=== PATIENT | male | born 1950 | race Caucasian/White ===

== ENCOUNTER 2016-12-02 04:17 | Observation (INO) | payer MEDICARE, OTHER ==
[~2016-12-02] VITALS: Ht 172.7 cm; Wt 84.5 kg
[2016-12-02] VITALS (11 sets, daily range): BP systolic 100–140; BP diastolic 54–83; PULSE 53–74; RESP 16–24; TEMP 95.8–97.5; O2SAT 97–100
[~2016-12-02 04:17] MED LIST: AMBI10TA PO; BUSP10 PO; FLUO-1 PO; PROT40TA PO
[2016-12-02] MEDS ORDERED: SODIUM CHLOR 0.9% 1000 ML INJ 1,000 ML IV SCH ×3 (04:48→07:30)
[2016-12-02] MEDS ORDERED: AMBI10TA PO (04:53)
[2016-12-02] MEDS ORDERED: FLUO-1 PO (04:53)
[2016-12-02] MEDS ORDERED: BUSP10TA PO (04:53)
[2016-12-02] MEDS ORDERED: NEUR300C PO (04:53)
[2016-12-02] MEDS ORDERED: OMEP20TA PO (04:53)
--- NOTE | 2016-12-02 04:54 | PD ---
HPI Chief Complaint: GI Complaint Time Seen by Provider: 04:48 Travel History International Travel<30 days: No Contact w/Intl Traveler<30days: No Traveled to known affect area: No History of Present Illness HPI 66-year-old male presents to the emergency department by private transportation for evaluation of abdominal pain. According the patient he has had abdominal pain since bedtime. Patient's had nausea without hematemesis coffee-ground emesis melena hematochezia. No reported fever chills chest pain or shortness of breath. Patient takes medication for anxiety posttraumatic stress disorder and insomnia. Patient also takes medication for GI upset. Patient states he's had similar symptoms several years ago. Patient denies previous abdominal surgery. Patient does not report alleviating or exacerbating factors. Pain affects the entire abdomen as 10 over 10 in intensity. PFSH Past Medical History Narrative Medical Anxiety depression cholelithiasis; denies surgery; nursing notes reviewed Anxiety: Yes Depression: Yes Cancer: No Cardiovascular Problems: No Diminished Hearing: No Endocrine: No Genitourinary: No Immune Disorder: No Musculoskeletal: No Neurologic: Yes Psychiatric: Yes Reproductive: No Respiratory: No Immunizations Current: Yes Seizures: Yes Past Surgical History AICD: No Arteriovenous Shunt: No Insulin Pump: No Joint Replacement: No Pacemaker: No Social History Alcohol Use: No Tobacco Use: No Substance Use: No Allergies-Medications (Allergen,Severity, Reaction): Coded Allergies: No Known Allergies (Unverified , 12/02/16) Reported Meds & Prescriptions Reported Meds & Active Scripts Active Reported Buspirone (Buspirone HCl) 10 Mg Tab 10 Mg PO DAILY Neurontin (Gabapentin) 300 Mg Cap 300 Mg PO TID Ambien (Zolpidem Tartrate) 10 Mg Tab 10 Mg PO HS PRN Prozac (Fluoxetine HCl) 10 Mg Cap 10 Mg PO DAILY Omeprazole 20 Mg Tab 20 Mg PO DAILY Review of Systems Except as stated in HPI: all other systems reviewed are Neg General / Constitutional: No: Fever HENT: No: Congestion Cardiovascular: No: Chest Pain or Discomfort Respiratory: No: Shortness of Breath Gastrointestinal: Positive: Nausea, Vomiting, Abdominal Pain, No: Diarrhea Genitourinary: No: Dysuria, Flank Pain Musculoskeletal: No: Myalgias, Arthralgias Skin: No Rash Neurologic: No: Weakness Psychiatric: No: Anxiety Endocrine: No: Heat Intolerance Hematologic/Lymphatic: No: Easy Bruising Physical Exam Narrative GENERAL: Well-developed well-nourished male in obvious discomfort no respiratory distress SKIN: Warm and dry. HEAD: Normocephalic. EYES: No scleral icterus. No injection or drainage. NECK: Supple, trachea midline. No JVD or lymphadenopathy. CARDIOVASCULAR: Regular rate and rhythm without murmurs, gallops, or rubs. RESPIRATORY: Breath sounds equal bilaterally. No accessory muscle use. GASTROINTESTINAL: Abdomen soft, diffusely tender without guarding or rebound or clinical Jung sign, no palpable pulsatile mass, nondistended. MUSCULOSKELETAL: No cyanosis, or edema. BACK: Nontender without obvious deformity. No CVA tenderness. Data Data Last Documented VS Vital Signs Date Time Temp Pulse Resp B/P Pulse Ox O2 Delivery O2 Flow Rate FiO2 12/02/16 06:50 16 12/02/16 06:48 56 126/73 97 Room Air 12/02/16 04:30 97.5 Orders Complete Blood Count With Diff (12/02/16 04:48) Comprehensive Metabolic Panel (12/02/16 04:48) Lipase (12/02/16 04:48) Lactic Acid (12/02/16 04:48) Urinalysis - C+S If Indicated (12/02/16 04:48) Iv Access Insert/Monitor (12/02/16 04:48) Ecg Monitoring (12/02/16 04:48) Oximetry (12/02/16 04:48) Ondansetron Inj (Zofran Inj) (12/02/16 05:00) Sodium Chlor 0.9% 1000 Ml Inj (Ns 1000 M (12/02/16 04:48) Sodium Chloride 0.9% Flush (Ns Flush) (12/02/16 05:00) Electrocardiogram (12/02/16 04:48) Hydromorphone Pf Inj (Dilaudid Pf Inj) (12/02/16 05:00) Ct Abd/Pel W Iv Contrast(Rout) (12/02/16 ) Troponin I (12/02/16 04:48) Sodium Chlorid 0.9% 500 Ml Inj (Ns 500 M (12/02/16 05:30) Aspirin Chew (Aspirin Chew) (12/02/16 09:00) Nitroglycerin Sl (Nitrostat Sl) (12/02/16 05:30) Aspirin Chew (Aspirin Chew) (12/02/16 06:30) Sodium Chlor 0.9% 1000 Ml Inj (Ns 1000 M (12/02/16 06:30) Ketorolac Inj (Toradol Inj) (12/02/16 06:30) Pantoprazole Inj (Protonix Inj) (12/02/16 06:30) Hydromorphone Pf Inj (Dilaudid Pf Inj) (12/02/16 06:30) Aspirin Chew (Aspirin Chew) (12/02/16 09:00) Troponin I (12/02/16 06:37) Place In Observation (12/02/16 ) Vital Signs (Adult) Q4H (12/02/16 06:55) Activity Oob With Assistance (12/02/16 06:55) Death Claim Clerk / Telemetry .CONTINUOUS (12/02/16 06:55) Diet Npo (12/02/16 Breakfast) Sodium Chlor 0.9% 1000 Ml Inj (Ns 1000 M (12/02/16 06:55) Sodium Chloride 0.9% Flush (Ns Flush) (12/02/16 07:00) Sodium Chloride 0.9% Flush (Ns Flush) (12/02/16 09:00) Comprehensive Metabolic Panel (12/03/16 06:00) Complete Blood Count With Diff (12/03/16 06:00) Naloxone Inj (Narcan Inj) (12/02/16 07:00) Hydromorphone Pf Inj (Dilaudid Pf Inj) (12/02/16 07:00) Us Abdomen Complete (12/02/16 ) Admit Order (Ed Use Only) (12/02/16 ) ^ Saline Lock (12/02/16 06:56) Resp Oxygen Elkin C Titrat 1-4 L (12/02/16 ) Notify Dr: Other (12/02/16 06:56) Sodium Chloride 0.9% Flush (Ns Flush) (12/02/16 09:00) Sodium Chloride 0.9% Flush (Ns Flush) (12/02/16 07:00) Labs Laboratory Tests Test 12/02/16 12/02/16 12/02/16 04:45 06:15 06:40 White Blood Count 7.6 TH/MM3 Red Blood Count 5.64 MIL/MM3 Hemoglobin 14.6 GM/DL Hematocrit 46.4 % Mean Corpuscular Volume 82.2 FL Mean Corpuscular Hemoglobin 25.8 PG Mean Corpuscular Hemoglobin 31.4 % Concent Red Cell Distribution Width 13.4 % Platelet Count 236 TH/MM3 Mean Platelet Volume 8.4 FL Neutrophils (%) (Auto) 76.4 % Lymphocytes (%) (Auto) 15.7 % Monocytes (%) (Auto) 6.8 % Eosinophils (%) (Auto) 0.7 % Basophils (%) (Auto) 0.4 % Neutrophils # (Auto) 5.8 TH/MM3 Lymphocytes # (Auto) 1.2 TH/MM3 Monocytes # (Auto) 0.5 TH/MM3 Eosinophils # (Auto) 0.1 TH/MM3 Basophils # (Auto) 0.0 TH/MM3 CBC Comment DIFF FINAL Differential Comment Sodium Level 143 MEQ/L Potassium Level 3.7 MEQ/L Chloride Level 108 MEQ/L Carbon Dioxide Level 29.5 MEQ/L Anion Gap 6 MEQ/L Blood Urea Nitrogen 21 MG/DL Creatinine 0.98 MG/DL Estimat Glomerular Filtration 77 ML/MIN Rate Random Glucose 134 MG/DL Lactic Acid Level 2.3 mmol/L Calcium Level 8.6 MG/DL Total Bilirubin 0.6 MG/DL Aspartate Amino Transf 21 U/L (AST/SGOT) Alanine Aminotransferase 35 U/L (ALT/SGPT) Alkaline Phosphatase 66 U/L Troponin I LESS THAN 0.02 LESS THAN 0.02 NG/ML NG/ML Total Protein 7.3 GM/DL Albumin 3.8 GM/DL Lipase 204 U/L Urine Color YELLOW Urine Turbidity CLEAR Urine pH 5.0 Urine Specific [place] GREATER THAN 1.035 Urine Protein NEG mg/dL Urine Glucose (UA) NEG mg/dL Urine Ketones NEG mg/dL Urine Occult Blood NEG Urine Nitrite NEG Urine Bilirubin NEG Urine Leukocyte Esterase NEG Urine RBC 0-2 /hpf Urine WBC 0-2 /hpf Urine Squamous Epithelial 0-5 /hpf Cells Urine Calcium Oxalate Crystals MOD /hpf Urine Bacteria NONE /hpf Microscopic Urinalysis Comment CULT NOT INDICATED MDM Medical Decision Making Medical Screen Exam Complete: Yes Emergency Medical Condition: Yes Medical Record Reviewed: Yes Interpretation(s) ekg: Normal sinus rhythm rate 67 J-point elevation anterolaterally without any reciprocal ST segment depression; possible early repolarization EKG@6:19 AM for complaint of increased abdominal pain no acute ST elevation or injury pattern change sinus bradycardia rate 54; CT abdomen and pelvis reveals no acute abnormalities except for single calcified large gallstone without inflammatory changes Vital Signs Date Time Temp Pulse Resp B/P Pulse Ox O2 Delivery O2 Flow Rate FiO2 12/02/16 06:22 74 16 100/54 99 Room Air 12/02/16 06:00 59 16 122/63 99 Room Air 12/02/16 05:37 58 16 122/73 99 Room Air 12/02/16 05:32 57 131/83 99 Room Air 12/02/16 05:30 59 16 140/80 99 12/02/16 04:51 18 99 Room Air 12/02/16 04:30 97.5 67 18 126/78 99 CBC & BMP Diagram 12/02/16 04:45 Last Impressions Abdomen/Pelvis CT 12/02/16 0000 Signed Impressions: Service Date/Time: Monday, December 02, 2016 05:34 - CONCLUSION: Normal examination except for a single peripherally calcified gallstone. Silver Smith MD Troponin I less than 0.02, not elevated CK 60, not elevated Lactic acid 2.3 elevated Differential Diagnosis Abdominal pain, gastritis, peptic ulcer disease, cholecystitis, choledocholithiasis, pancreatitis, ischemic colitis, appendicitis, diverticulitis, viscus perforation, atypical chest pain, ACS, abdominal aortic dissection/aneurysm Narrative Course IV access obtained specimens collected and sent for resulting patient administered normal saline along with Dilaudid 1 mg IV and Zofran [address] abdomen and pelvis ordered At 5:20 AM patient's abdominal pain has diminished and continues to deny any chest pain or shortness of breath. Patient's abdominal pain is diffuse other primarily reproducible right upper quadrant and epigastric periumbilical region without guarding or rebound or palpable pulsatile mass. @6:15 AM patient is awakened by me from sleeping and then complaining of severe nonradiating abdominal pain 10 over 10 pain without nausea no vomiting sweats or chest pain shortness of breath referred neck jaw back shoulder arm or chest pain. Patient states pain is periumbilical and epigastric. On palpation of the entire abdomen tenderness is the same; no clinical Jung sign. There is no guarding or rebound. Due to complaint of increasing abdominal pain repeat EKG performed reveals sinus bradycardia no acute ST elevation or injury pattern change some J-point noted in V3 through V5 no reciprocal ST segment depression or T-wave inversion. Patient given additional IV fluids Protonix and a one- time dose of Toradol. Patient states earlier administration of nitroglycerin provided no symptom relief and again states he has no chest pain. Patient does report that symptoms began after eating a double cheeseburger. CT abdomen and pelvis does identify a single large calcified gallstone without evidence of ductal dilatation or gallbladder wall thickening or pericholecystic fluid. Patient is identified to have elevated lactic acid of 2.3. Patient's case discussed with on-call [facility] MD --will admit to OBS for further evaluation, npo, and bowel rest Physician Communication Physician Communication call placed to [facility] service --discussed with Dr Nelson for OBS Diagnosis Primary Impression: Intractable upper abdominal pain Additional Impression: Cholelithiasis without obstruction Qualified Code: K80.20 - Calculus of gallbladder without cholecystitis without obstruction Admitting Information Admitting Physician Requests: Observation Sandra Villarreal MD December 02, 2016 04:54
[2016-12-02] MEDS ORDERED: HYDROmorphone HCL PF 1 MG/ML VIAL IV PUSH ONE ×2 (05:00→06:30)
[2016-12-02] MEDS ORDERED: SODIUM CHLORIDE 0.9% FLUSH 10 ML FLUSH IV FLUSH PRN ×2 (05:00→07:00)
[2016-12-02] MEDS ORDERED: ONDANSETRON HCL 4 MG/2 ML VIAL IVP ONE (05:00)
[2016-12-02 05:11] LABS: AUTOMATED NEUTROPHIL # 5.8 TH/MM3 (1.8-7.7); BASOPHIL % 0.4 % (0.0-2.0); EOSINOPHIL # 0.1 TH/MM3 (0-0.4); EOSINOPHIL % 0.7 % (0.0-4.0); HEMATOCRIT 46.4 % (39.0-51.0); HEMO FLAGS DIFF FINAL; LYMPH % 15.7 % (9.0-44.0); LYMPHOCYTE # 1.2 TH/MM3 (1.0-4.8); MEAN CELL VOLUME 82.2 FL (80.0-100.0); MEAN CORPUSCULAR HEMOGLOBIN 25.8 PG (27.0-34.0); MEAN CORPUSCULAR HGB CONC 31.4 % (32.0-36.0); MONO % 6.8 % (0.0-8.0); NEUT % 76.4 % (16.0-70.0); PLATELET COUNT 236 TH/MM3 (150-450); RED BLOOD COUNT 5.64 MIL/MM3 (4.50-5.90); RED CELL DISTRIBUTION WIDTH 13.4 % (11.6-17.2); WHITE BLOOD COUNT 7.6 TH/MM3 (4.0-11.0)
[2016-12-02 05:21] LABS: CHLORIDE 108 MEQ/L (98-107); POTASSIUM 3.7 MEQ/L (3.5-5.1); SODIUM (NA) 143 MEQ/L (136-145)
[2016-12-02 05:25] LABS: ANION GAP 6 MEQ/L (5-15); BICARBONATE 29.5 MEQ/L (21.0-32.0); BLOOD UREA NITROGEN 21 MG/DL (7-18)
[2016-12-02 05:27] LABS: ALT (GPT) 35 U/L (12-78)
[2016-12-02 05:28] LABS: AST (GOT) 21 U/L (15-37); GLOMERULAR FILTRATION RATE 77 ML/MIN (>89)
[2016-12-02 05:29] LABS: TOTAL BILIRUBIN ADULT 0.6 MG/DL (0.2-1.0)
[2016-12-02 05:30] LABS: ALKALINE PHOSPHATASE 66 U/L (45-117)
[2016-12-02] MEDS ORDERED: NITROGLYCERIN 0.4 MG SL 25 TABS/BTL SL ONE (05:30)
[2016-12-02] MEDS ORDERED: SODIUM CHLORID 0.9% 500 ML INJ 500 ML IV ONE (05:30)
--- NOTE | 2016-12-02 06:15 | RADHPO ---
EXAM DATE/TIME: 12/02/2016 05:34 [facility] COMPARISON: CT ABDOMEN & PELVIS W CONTRAST, April 09, 2016, 3:57. INDICATIONS : Abdominal pain. Nausea. IV CONTRAST: 100 cc Omnipaque 350 (iohexol) IV ORAL CONTRAST: No oral contrast ingested. RADIATION DOSE: 12.12 CTDIvol (mGy) MEDICAL HISTORY : None SURGICAL HISTORY : None. ENCOUNTER: Initial ACUITY: 1 day PAIN SCALE: 10/10 LOCATION: Bilateral upper quadrant TECHNIQUE: Volumetric scanning of the abdomen and pelvis was performed. Using automated exposure control and ad justment of the mA and/or kV according to patient size, radiation dose was kept as low as reasonably achievable to obtain optimal diagnostic quality images. FINDINGS: LOWER LUNGS: The visualized lower lungs are clear. LIVER: Homogeneous density without lesion. There is no dilation of the biliary tree. Solitary peripherally calcified gallstone. SPLEEN: Normal size without lesion. PANCREAS: Within normal limits. KIDNEYS: Normal in size and shape. There is no mass, stone or hydronephrosis. ADRENAL GLANDS: Within normal limits. VASCULAR: There is no aortic aneurysm. BOWEL/MESENTERY: The stomach, small bowel, and colon demonstrate no acute abnormality. There is no free intraperitone al air or fluid. ABDOMINAL WALL: Within normal limits. RETROPERITONEUM: There is no lymphadenopathy. BLADDER: No wall thickening or mass. REPRODUCTIVE: Within normal limits. INGUINAL: There is no lymphadenopathy or hernia. MUSCULOSKELETAL: Within normal limits for patient age. CONCLUSION: Normal examination except for a single peripherally calcified gallstone. Silver Smith MD on December 02, 2016 at 6:12 Board Certified Radiologist. This report was verified electronically.
[2016-12-02 06:26] LABS: BLOOD, URINE NEG (NEG); GLUCOSE,URINE NEG (NEG); KETONE, URINE NEG (NEG); NITRITE,URINE NEG (NEG)
[2016-12-02] MEDS ORDERED: ASPIRIN 81 MG CHEW TAB ONE (06:30)
[2016-12-02] MEDS ORDERED: SODIUM CHLOR 0.9% 1000 ML INJ 1,000 ML IV ONE (06:30)
[2016-12-02] MEDS ORDERED: PANTOPRAZOLE SODIUM 40 MG VIAL IV PUSH ONE (06:30)
[2016-12-02] MEDS ORDERED: KETOROLAC TROMETHAMINE 30 MG/ML (IVP) VIAL IV PUSH ONE (06:30)
[2016-12-02 06:32] LABS: URINE COLOR YELLOW (YELLW/STRAW)
[2016-12-02 06:33] LABS: RBC, URINE 0-2 /hpf (0-3); SQUAMOUS EPITHELIAL CELL URINE 0-5 /hpf (0-5); WBC, URINE 0-2 /hpf (0-5)
[2016-12-02 06:34] LABS: CALCIUM OXALATE CRYSTALS,URINE MOD /hpf; COMMENT (UR) CULT NOT INDICATED; CULTURE IF INDICATED CULT NOT INDICATED
[2016-12-02] MEDS ORDERED: NALOXONE HCL 0.4 MG/ML AMP IV PRN (07:00)
[2016-12-02] MEDS ORDERED: SODIUM CHLORIDE 0.9% FLUSH 10 ML FLUSH IVF PRN (07:00)
[2016-12-02] MEDS ORDERED: HYDROmorphone HCL PF 1 MG/ML VIAL IV PUSH PRN (07:00)
[2016-12-02] MEDS ORDERED: IOHEXOL 350 MG/ML 10 ML VIAL (for RAD DIAG) IV ONE (07:10)
--- NOTE | 2016-12-02 08:16 | RADHPO ---
EXAM DATE/TIME: 12/02/2016 12:43 [facility] COMPARISON: No previous studies available for comparison. INDICATIONS : Abdominal pain, vomiting. MEDICAL HISTORY : Abdominal pain, vomiting. SURGICAL HISTORY : None. ENCOUNTER: Initial ACUITY: 1 day PAIN SCORE: 0/10 LOCATION: Bilateral upper quadrant MEASUREMENTS: LIVER: 14.3 cm length COMMON DUCT: 5 mm RIGHT KIDNEY: 13.3 x 5.9 x 5.0 cm LEFT KIDNEY: 13.5 x 6.8 x 5.9 cm SPLEEN: 8.4 cm length AORTA: 2.1cm maximal FINDINGS: LIVER: Normal echotexture without focal lesion or ductal dilatation. Hepatopedal flow. COMMON DUCT: No intraluminal mass or stone visualized. GALLBLADDER: Contains a non-mobile stone in gallbladder neck, demonstrates no wall thickening or pericholecystic f luid. PANCREAS: Not well seen. RIGHT KIDNEY: No hydronephrosis, stone or mass. LEFT KIDNEY: No hydronephrosis, stone or mass. SPLEEN: No focal lesion. AORTA: Non aneurysmal. IVC: Within normal limits. CONCLUSION: 1. Cholelithiasis without gallbladder wall thickening. 2. Poorly visualized pancreas. Anthony Mei MD on December 02, 2016 at 8:13 Board Certified Radiologist. This report was verified electronically.
[2016-12-02] MEDS ORDERED: SODIUM CHLORIDE 0.9% FLUSH 10 ML FLUSH IV FLUSH SCH ×2 (09:00)
[2016-12-02] MEDS ORDERED: ASPIRIN 81 MG CHEW TAB CHEW SCH ×2 (09:00)
--- NOTE | 2016-12-02 10:10 | HHI.HP ---
[facility] Service [facility] Primary Care Physician [facility] Admission Diagnosis intractable abdominal pain; cholelithiasis Diagnoses: (1) Abdominal pain Diagnosis: Principal Chief Complaint: abdominal pain Travel History International Travel<30 Days: No Contact w/Intl Traveler <30 Da: No Traveled to Known Affected Are: No History of Present Illness patient is a 66 y/o male with history of PTSD who presented to ER with abdominal pain. he says that the pain started yesterday after he had a cheeseburger-the pain was severe and periumbilical. pain was associated with nausea and vomiting. he denies any diarrhea.at the time of my evaluation he said that the pain already got better.he denies any chest pain or sob. Review of Systems Constitutional: DENIES: Fever, Weight loss, Chills, Night Sweats Eyes: DENIES: Blurred vision, Diplopia, Vision loss, Double Vision Ears, nose, mouth, throat: DENIES: Tinnitus, Vertigo, Throat pain, Epistaxis Respiratory: DENIES: Apneas, Cough, Snoring, Wheezing, Hemoptysis, Sputum production, Shortness of breath Cardiovascular: DENIES: Chest pain, Palpitations, Syncope, Dyspnea on Exertion , PND, Lower Extremity Edema, Orthopnea, Claudication Gastrointestinal: COMPLAINS OF: Abdominal pain, Nausea, Vomiting, DENIES: Black stools, Bloody stools, Constipation, Diarrhea, Difficulty Swallowing, Anorexia Genitourinary: DENIES: Urinary frequency, Urgency, Hematuria, Dysuria Musculoskeletal: DENIES: Joint pain, Muscle aches, Stiffness, Joint Swelling Integumentary: DENIES: Rash Neurologic: DENIES: Abnormal gait, Headache, Localized weakness, Paresthesias, Seizures, Speech Problems, Tremor, Poor Balance Psychiatric: DENIES: Anxiety, Confusion, Mood changes, Depression, Hallucinations, Agitation, Suicidal Ideation, Homicidal Ideation, Delusions Past Family Social History Past Medical History PTSD Past Surgical History none reported. Reported Medications Buspirone (Buspirone HCl) 10 Mg Tab 10 Mg PO DAILY Neurontin (Gabapentin) 300 Mg Cap 300 Mg PO TID Ambien (Zolpidem Tartrate) 10 Mg Tab 10 Mg PO HS PRN Prozac (Fluoxetine HCl) 10 Mg Cap 10 Mg PO DAILY Omeprazole 20 Mg Tab 20 Mg PO DAILY Allergies: Coded Allergies: No Known Allergies (Unverified , 12/02/16) Active Ordered Medications Current Medications Ondansetron HCl 4 mg 4 mg ONCE ONCE IVP Last administered on 12/02/16 04:58; Start 12/02/16 at 05:00; Stop 12/02/16 at 05:01; Status DC Sodium Chloride (NS 1000 ml Inj) 1,000 ml @ 125 mls/hr Q8H IV Last administered on 12/02/16 04:58; Start 12/02/16 at 04:48; Stop 12/02/16 at 07:02 ; Status DC Sodium Chloride (NS Flush) 2 ml UNSCH PRN IV FLUSH FLUSH AFTER USING IV ACCESS ; Start 12/02/16 at 05:00; Stop 12/02/16 at 07:00; Status DC Hydromorphone HCl 1 mg 1 mg ONCE ONCE IV PUSH Last administered on 12/02/16 04:59; Start 12/02/16 at 05:00; Stop 12/02/16 at 05:01; Status DC Sodium Chloride (NS 500 ml Inj) 500 ml @ 500 mls/hr BOLUS ONCE IV Last administered on 12/02/16 05:28; Start 12/02/16 at 05:30; Stop 12/02/16 at 06:29 ; Status DC Aspirin (Aspirin Chew) 162 mg DAILY CHEW ; Start 12/02/16 at 09:00; Stop at 09:00; Status DC Nitroglycerin (Nitrostat Sl) 0.4 mg ONCE ONCE SL Last administered on 05:28; Start 12/02/16 at 05:30; Stop 12/02/16 at 05:31; Status DC Aspirin 81 mg 81 mg STK-MED ONCE .ROUTE Last administered on 12/02/16 06:45; Start 12/02/16 at 06:30; Stop 12/02/16 at 06:31; Status DC Sodium Chloride (NS 1000 ml Inj) 1,000 ml @ 999 mls/hr BOLUS ONCE IV Last administered on 12/02/16 06:43; Start 12/02/16 at 06:30; Stop 12/02/16 at 07:30 ; Status DC Ketorolac Tromethamine (Toradol Inj) 30 mg ONCE ONCE IV PUSH Last administered on 12/02/16 06:44; Start 12/02/16 at 06:30; Stop 12/02/16 at 06:31 ; Status DC Pantoprazole Sodium (Protonix Inj) 40 mg ONCE ONCE IV PUSH Last administered on 12/02/16 06:44; Start 12/02/16 at 06:30; Stop 12/02/16 at 06:31; Status DC Hydromorphone HCl (Dilaudid Pf Inj) 0.5 mg ONCE ONCE IV PUSH Last administered on 12/02/16 06:44; Start 12/02/16 at 06:30; Stop 12/02/16 at 06:31 ; Status DC Aspirin 162 mg 162 mg DAILY CHEW ; Start 12/02/16 at 09:00 Sodium Chloride (NS 1000 ml Inj) 1,000 ml @ 100 mls/hr Q10H IV ; Start at 06:55; Status Cancel Sodium Chloride (NS Flush) 2 ml UNSCH PRN IV FLUSH FLUSH AFTER USING IV ACCESS ; Start 12/02/16 at 07:00 Sodium Chloride (NS Flush) 2 ml BID IV FLUSH ; Start 12/02/16 at 09:00 Naloxone HCl (Narcan Inj) 0.4 mg UNSCH PRN IV SEE LABEL COMMENTS; Start at 07:00 Hydromorphone HCl (Dilaudid Pf Inj) 0.2 mg Q4H PRN IV PUSH pain >5; Start 12/02 at 07:00 Sodium Chloride (NS Flush) 2 ml BID IV FLUSH ; Start 12/02/16 at 09:00; Stop at 09:00; Status DC Sodium Chloride (NS Flush) 2 ml UNSCH PRN IVF FLUSH AFTER USING IV ACCESS; Start 12/02/16 at 07:00; Stop 12/02/16 at 07:02; Status DC Iohexol 100 ml 100 ml STK-MED ONCE IV Last administered on 12/02/16 07:10; Start 12/02/16 at 07:10; Stop 12/02/16 at 07:11; Status DC Sodium Chloride (NS 1000 ml Inj) 1,000 ml @ 100 mls/hr Q10H IV Last administered on 12/02/16t 07:36; Start 12/02/16 at 07:30 Family History not relevant to this admission. Social History no smoking or drinking. Physical Exam Vital Signs Vital Signs Date Time Temp Pulse Resp B/P Pulse Ox O2 Delivery O2 Flow Rate FiO2 12/02/16 09:12 64 16 100/60 99 12/02/16 06:50 16 12/02/16 06:48 56 16 126/73 97 Room Air 12/02/16 06:22 74 16 100/54 99 Room Air 12/02/16 06:00 59 16 122/63 99 Room Air 12/02/16 05:37 58 16 122/73 99 Room Air 12/02/16 05:32 57 131/83 99 Room Air 12/02/16 05:30 59 16 140/80 99 12/02/16 04:51 18 99 Room Air 12/02/16 04:30 97.5 67 18 126/78 99 Physical Exam GENERAL: This is a well-nourished, well-developed patient, in no apparent distress. SKIN: No rashes, ecchymoses or lesions. Cool and dry. HEAD: Atraumatic. Normocephalic. No temporal or scalp tenderness. EYES: Pupils equal round and reactive. Extraocular motions intact. No scleral icterus. No injection or drainage. ENT: Nose without bleeding, purulent drainage or septal hematoma. Throat without erythema, tonsillar hypertrophy or exudate. Uvula midline. Airway patent. NECK: Trachea midline. No JVD or lymphadenopathy. Supple, nontender, no meningeal signs. CARDIOVASCULAR: Regular rate and rhythm without murmurs, gallops, or rubs. RESPIRATORY: Clear to auscultation. Breath sounds equal bilaterally. No wheezes , rales, or rhonchi. GASTROINTESTINAL: Abdomen soft, non-tender, nondistended. No hepato-splenomegaly , or palpable masses. No guarding. MUSCULOSKELETAL: Extremities without clubbing, cyanosis, or edema. No joint tenderness, effusion, or edema noted. No calf tenderness. Negative Homans sign bilaterally. NEUROLOGICAL: Awake and alert. Cranial nerves II through XII intact. Motor and sensory grossly within normal limits. Five out of 5 muscle strength in all muscle groups. Normal speech. Laboratory Laboratory Tests Test 12/02/16 12/02/16 12/02/16 04:45 06:15 06:40 White Blood Count 7.6 Red Blood Count 5.64 Hemoglobin 14.6 Hematocrit 46.4 Mean Corpuscular Volume 82.2 Mean Corpuscular Hemoglobin 25.8 Mean Corpuscular Hemoglobin 31.4 Concent Red Cell Distribution Width 13.4 Platelet Count 236 Mean Platelet Volume 8.4 Neutrophils (%) (Auto) 76.4 Lymphocytes (%) (Auto) 15.7 Monocytes (%) (Auto) 6.8 Eosinophils (%) (Auto) 0.7 Basophils (%) (Auto) 0.4 Neutrophils # (Auto) 5.8 Lymphocytes # (Auto) 1.2 Monocytes # (Auto) 0.5 Eosinophils # (Auto) 0.1 Basophils # (Auto) 0.0 CBC Comment DIFF FINAL Differential Comment Sodium Level 143 Potassium Level 3.7 Chloride Level 108 Carbon Dioxide Level 29.5 Anion Gap 6 Blood Urea Nitrogen 21 Creatinine 0.98 Estimat Glomerular Filtration 77 Rate Random Glucose 134 Lactic Acid Level 2.3 Calcium Level 8.6 Total Bilirubin 0.6 Aspartate Amino Transf 21 (AST/SGOT) Alanine Aminotransferase 35 (ALT/SGPT) Alkaline Phosphatase 66 Troponin I LESS THAN 0.02 LESS THAN 0.02 Total Protein 7.3 Albumin 3.8 Lipase 204 Urine Color YELLOW Urine Turbidity CLEAR Urine pH 5.0 Urine Specific [place] GREATER THAN 1.035 Urine Protein NEG Urine Glucose (UA) NEG Urine Ketones NEG Urine Occult Blood NEG Urine Nitrite NEG Urine Bilirubin NEG Urine Leukocyte Esterase NEG Urine RBC 0-2 Urine WBC 0-2 Urine Squamous Epithelial 0-5 Cells Urine Calcium Oxalate Crystals MOD Urine Bacteria NONE Microscopic Urinalysis Comment CULT NOT INDICATED Result Diagram: 12/02/16 0445 12/02/16 0445 Imaging Last Impressions Abdomen/Pelvis CT 12/02/16 0000 Signed Impressions: Service Date/Time: Friday, December 02, 2016 05:34 - CONCLUSION: Normal examination except for a single peripherally calcified gallstone. Silver Smith MD Abdomen Ultrasound 12/02/16 0000 Signed Impressions: Service Date/Time: Friday, December 02, 2016 12:43 - CONCLUSION: 1. Cholelithiasis without gallbladder wall thickening. 2. Poorly visualized pancreas. Anthony eMi MD EKG; sinus bradycardia Assessment and Plan Assessment and Plan A/P - abdominal pain- possible gastritis- now has improved dc NPO and start on liquid diet and advance as tolerates. -PTSD- resume home meds. -possible dc home later this evening if tolerates the diet. Discussed Condition With the patient and RN. Problem Qualifiers (1) Abdominal pain: Qualified Code: R10.33 - Periumbilical abdominal pain Chase Harris MD December 02, 2016 10:10
--- NOTE | 2016-12-02 10:12 | HHI.DCPOC ---
Discharge Care Plan Diagnosis: (1) Abdominal pain Additional Problems abdominal pain. Goals to Promote Your Health * To prevent worsening of your condition and complications * To maintain your health at the optimal level Directions to Meet Your Goals Take your medications as prescribed Follow your dietary instruction Follow activity as directed Keep your appointments as scheduled Take your immunizations and boosters as scheduled If your symptoms worsen call your PCP, if no PCP go to Urgent Care Center or Emergency Room Smoking is Dangerous to Your Health. Avoid second hand smoke Call the 24-hour hour crisis hotline for domestic abuse at Chase Harris MD December 02, 2016 10:12
[2016-12-02] MEDS ORDERED: ZOLPIDEM TARTRATE 10 MG TAB PO PRN (10:15)
[2016-12-02] MEDS ORDERED: SIMETHICONE 80 MG CHEWABLE TAB CHEW PRN (12:15)
[2016-12-02] MEDS ORDERED: GABAPENTIN 300 MG CAP PO SCH (13:00)
[2016-12-03] MEDS ORDERED: busPIRone HCL 10 MG TAB PO SCH (09:00)
[2016-12-03] MEDS ORDERED: PANTOPRAZOLE SOD 20 MG DELAYED RELEASE TAB PO SCH (09:00)
[2016-12-03] MEDS ORDERED: FLUoxetine HCL 10 MG CAP PO SCH (09:00)
--- NOTE | 2016-12-03 16:32 | EKG ---
Date Performed: 12/02/2016 Time Performed: 04:58:26 PTAGE: 66 years EKG: Sinus rhythm Lateral ST elevation - possible early repolarization Since previous tracing 04/09/2016, early repola rization changes were also seen on previous tracing and no significant changes has occured. [place] e ECG PREVIOUS TRACING : 04/09/2016 03.28 DOCTOR: Mayur Tilley Interpretating Date/Time 12/03/2016 16:30:38
== END 2016-12-02 16:50 | disposition home or self-care (01) ==
LOC: PHED 04:17 → PHEDA 06:58 → PH3B 10:15
PROVIDERS: ADMIT Internal Medicine; ATTEND Internal Medicine
DX: R10.33 Periumbilical pain (principal); K80.20 Calculus of gallbladder without cholecystitis without obstruction; R11.2 Nausea with vomiting, unspecified; F43.10 Post-traumatic stress disorder, unspecified
CPT/HCPCS: 74177; 76700; 80053; 81001; 83605; 83690; 84484; 85025; 93005; 96361; 96374; 96375; 99285; C9113; G0378; J1170; J1885; J2405; J7030; J7040; Q9967